=== PATIENT | female | born 2000 | race Asian ===

== ENCOUNTER 2023-10-06 07:55 | Inpatient (IN) ==
[2023-10-06] MEDS ORDERED: LIDOCAINE 1% LOCAL 20 ML VIAL INFIL PRN (08:05)
[2023-10-06] MEDS ORDERED: OXYTOCIN 30 UNITS/NSS 30 UNITS/500 ML BAG IV PRN ×2 (08:05)
[2023-10-06] MEDS ORDERED: PENICILLIN GK 6 MU in DEXTROSE 5% 250 ML IV STA (08:09)
[2023-10-06] MEDS ORDERED: INSULIN REGULAR 250 UNITS in SODIUM CHLORIDE 0.9% 247.5 ML IV PRN (08:30)
[2023-10-06] MEDS ORDERED: DEXTROSE 50% 50 ML SYRINGE IV PRN (08:30)
[2023-10-06] MEDS ORDERED: SODIUM CHLORIDE 0.9% 1,000 ML IV PRN (08:30)
[2023-10-06 08:40] LABS: Hemoglobin 12.5 g/dl (12.0-16.0); Mean Corpuscular Hgb Conc 32.9 g/dL (32.0-36.0); Mean Platelet Volume 10.5 fL (9.4-12.4); Platelet Count 305 K/uL (130-400); RDW Coefficient of Variation 15.2 % (11.5-14.5); White Blood Count 13.09 K/ul (4.8-10.8)
[2023-10-06] MEDS: LACTATED RINGER'S 1,000 ML IV PRN ×3 (08:44→20:47)
--- NOTE | 2023-10-06 09:21 | Labor Progress Brief Note ---
Date of Service October 06, 2023 Subjective Had a lot of discomfort last night on the way home from hospital after having Kay placed; pulled over to side of road during her worst episode of cramps, which then resolved on their own, and they went home. Noticed "a few teaspoons" of bleeding, and the balloon fell out completely about 3 hours after it was placed. This morning she has some residual vaginal discomfort and c/o pain at the IV sites that have just been placed. Feeling FM, no ROM. No active VB but they do mention again the bleeding last night after kay placement. Assessment & Plan (1) Insulin controlled gestational diabetes mellitus (GDM) during , antepartum: Plan 23yo obese female with A2GDM vs undiagnosed T2DM (based on gestational 1-hr GTT result of 284) for IOL. 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 PCN for GBS, and Pitocin for IOL. Epidural on request. Patient was not sure she wanted to get one but after the amount of discomfort she had during exam, kay placement and overnight, she is now more open to using epidural. Ultrasounds reviewed, EFW/AC's have been in smaller ranges. Limited Nigerian speaker, but is fluent and they both prefer that he translates for her, refusing the use of iPad nonprofit fundraiser here as they have previously done in office. As seen in office, patient often responds to spoken Nigerian with appropriate behavioral responses that suggest she chooses to have her speak for her rather than that she completely fails to understand what is being discussed. Cervix this morning is only slightly changed from yesterday suggesting the balloon fell out from the cervix before it had really had full effect. Perhaps her significant pain episode on the way home was extrusion of the balloon through the cervix? Options for cervical ripening were discussed and patient elects to have a Kay replaced, rather than to use cytotec. This was completed without difficulty and with good tolerance by the patient, and placed on tension with a leg sticker. Low dose pitocin to be used concurrently, can go up on pit dose after balloon falls out. Admission and Anticipated Discharge Date Admission Date: October 06, 2023 Physical Exam Genitourinary: 1/50/hi/soft/post 140 mod karin +acc -dec No ROM No significant VB Results & Data Vital Signs (Past 12 Hours) Vital Signs Temp Pulse Resp BP 10/06/23 08:26 88 131/60 10/06/23 08:15 98.2 F 99 H 18 127/60 Coding Level of Care Code None Diagnoses Insulin controlled gestational diabetes mellitus (GDM) during , antepartum O24.414
[2023-10-06] MEDS: DEXTROSE 5% 1,000 ML IV PRN ×2 (10:37→20:46)
[2023-10-06] MEDS: PENICILLIN GK 3 MU in DEXTROSE 5% 100 ML IV PRN ×3 (12:38→20:50)
[2023-10-06] MEDS ORDERED: fentaNYL citrate PF 100 MCG/2 ML VIAL ONE (13:40)
[2023-10-06] MEDS ORDERED: ePHEDrine sulfate 50 MG/ML AMP ONE (13:40)
[2023-10-06] MEDS ORDERED: fentANYL 2 MCG/ML BUPIVacaine 0.125%-NSS 100ML BAG ONE (13:41)
[2023-10-06] MEDS ORDERED: SODIUM CHLORIDE 0.9% PF INJ 10 ML VIAL ONE (13:41)
[2023-10-06] MEDS ORDERED: LIDOCAINE 2%/EPINEPHRINE 1:200,000 20 ML PF ONE ×2 (13:41→23:40)
[2023-10-06] MEDS ORDERED: BUPIVACAINE 0.25% PF 30 ML VIAL ONE (13:41)
[2023-10-06] MEDS ORDERED: ONDANSETRON INJ 2 MG/ML 2 ML VIAL IV PRN (13:43)
[2023-10-06] MEDS ORDERED: LIDOCAINE 2%/EPINEPHRINE 1:200,000 20 ML PF EPI STA (13:43)
[2023-10-06] MEDS ORDERED: BUPIVACAINE 0.25% PF 30 ML VIAL EPI PRN (13:43)
[2023-10-06] MEDS ORDERED: SODIUM CHLORIDE 0.9% PF INJ 10 ML VIAL EPI PRN (13:43)
[2023-10-06] MEDS ORDERED: diphenhydrAMINE 50 MG/ML VIAL IV PRN (13:43)
[2023-10-06] MEDS ORDERED: fentaNYL citrate PF 100 MCG/2 ML VIAL EPI STA (13:43)
[2023-10-06] MEDS ORDERED: fentaNYL citrate PF 100 MCG/2 ML VIAL EPI PRN (13:43)
[2023-10-06] MEDS ORDERED: ROPIVACAINE 0.5% PF 5 MG/ML 20 ML VIAL EPI PRN (13:43)
[2023-10-06] MEDS ORDERED: LIDOCAINE 2% MPF LOCAL 5 ML VIAL EPI PRN (13:43)
[2023-10-06] MEDS ORDERED: BUPIVACAINE 0.25% PF 30 ML VIAL EPI STA (13:43)
[2023-10-06] MEDS ORDERED: fentANYL 2 MCG/ML BUPIVacaine 0.125%-NSS 100ML BAG EPI PRN (13:43)
[2023-10-06] MEDS ORDERED: NALOXONE HCL 0.4 MG/1 ML VIAL/CARP IV PRN (13:43)
[2023-10-06] MEDS ORDERED: NALBUPHINE HCL 5 MG in SYRINGE 0 ML IV PRN (13:43)
[2023-10-06] MEDS ORDERED: SODIUM CHLORIDE 0.9% PF INJ 10 ML VIAL EPI STA (13:43)
[2023-10-06] MEDS ORDERED: ePHEDrine sulfate 50 MG/ML AMP IV PRN (13:43)
[2023-10-06] MEDS ORDERED: NALOXONE HCL 1 MG in SODIUM CHLORIDE 0.9% 1,000 ML IV PRN (13:43)
--- NOTE | 2023-10-06 13:45 | Anesthesiology Consultation ---
Date of Service October 06, 2023 Assessment & Plan (1) Encounter for pre-operative examination: Chart Review Chart Review: Patient NOT seen in Pre Admission Testing and Acceptable Risk for Labor Epidural Consults Requested none History Height/Weight Height: 5 ft Weight: 103.419 kg Allergies Allergy/AdvReac Type Severity Reaction Status Date / Time No Known Allergies Allergy Verified 10/05/23 15:16 Medications Home Medications Medication Instructions Recorded Confirmed Last Taken acetone (urine) test (Ketone Urine #50 ea 05/21/23 10/05/23 Unknown Test strips) blood sugar diagnostic (OneTouch #150 ea 05/21/23 10/05/23 Unknown Verio test strips) blood-glucose meter (OneTouch #1 ea 05/21/23 10/05/23 Unknown Verio Reflect Meter) lancets 33 gauge #150 ea 05/21/23 10/05/23 Unknown pen needle, diabetic 32 gauge x #100 ea 06/04/23 10/05/23 Unknown 5/32" (BD Ultra-Fine Blanca Pen Needle) doxylamine succinate 25 mg tablet 25 mg PO HS 08/11/23 10/06/23 10/05/23 23:50 (Unisom (doxylamine)) insulin glargine 100 unit/mL (3 75 unit subcut QPM 08/11/23 10/06/23 10/05/23 06:00 mL) subcutaneous pen (Lantus Solostar U-100 Insulin) levothyroxine 100 mcg tablet 100 mcg PO DAILY 30 days #30 tabs 08/17/23 10/06/23 10/05/23 14:00 insulin aspart U-100 100 unit/mL See Rx Instructions subcut 08/30/23 10/06/23 10/05/23 23:00 (3 mL) subcutaneous pen (Novolog .COMPLEX #30 mL FlexPen U-100 Insulin aspart) vit no.95-ferrous 1 tab PO DAILY 10/05/23 10/06/23 10/05/23 18:45 fumarate 28 mg-folic acid 800 mcg tablet () Active Medications Generic Name Dose Route Start Last Admin Trade Name Freq PRN Reason Stop Dose Admin Oxytocin 30 units in 500 mls @ 9 mls/hr 10/06/23 08:05 10/06/23 12:40 Pitocin 30 Units/Nss IV 10/08/23 08:04 0.54 units/hr .Q24H PRN 9 mls/hr Labor Induction/Augmentation Titration Protocol 0.54 UNITS/HR Lactated Ringer's 1,000 mls @ 125 mls/hr 10/06/23 08:05 10/06/23 08:44 Lr IV 10/08/23 08:04 125 mls/hr .Q8H PRN Administration L&D Protocol Protocol Penicillin G Potassium 3 mu/ 106 mls @ 100 mls/hr 10/06/23 11:05 10/06/23 12:38 Dextrose IV 10/16/23 11:04 100 mls/hr Q4H PRN Administration GBS(+) Until Delivery Dextrose 1,000 mls @ 100 mls/hr 10/06/23 08:30 10/06/23 12:45 D5w IV 11/05/23 08:29 100 mls/hr .Q10H PRN Infusion BSG 180 or below Protocol Insulin Human Regular 250 250 mls @ 0 mls/hr 10/06/23 08:30 10/06/23 12:45 units/ Sodium Chloride IV 11/05/23 08:29 0.5 units/hr .Q0M PRN 0.5 mls/hr BSG 80mg/dL or ABOVE Titration Protocol Per Protocol Past Medical History Medical History (Updated 10/06/23 @ 13:45 by Lauro Parada MD) Encounter for pre-operative examination Diabetes mellitus Insulin controlled gestational diabetes mellitus (GDM) during , antepartum Hypothyroidism Infertility, female Past Family History Family History Father Myocardial infarction Diabetes Denies family history of Ovarian cancer Prostate cancer Breast cancer Colorectal cancer Uterine cancer Past Surgical History Surgical History No significant past surgical history Social History Smoking Status: Never smoker Do You Dip or Chew Tobacco: No Hx Alcohol Use: No Hx Substance Use: No Physical Exam Vital Signs Last Vital Signs Temp 36.8 C 10/06/23 10:59 Pulse 86 10/06/23 12:49 Resp 20 10/06/23 13:30 BP 115/70 10/06/23 12:49 O2 Del Method Room Air 10/06/23 09:25 Testing Laboratory Results 10/06/23 08:24 Blood Type B Positive 10/06/23 08:24 Blood Type Cancelled 10/06/23 08:24 Antibody Screen Cancelled 10/06/23 08:24 Antibody Screen NEGATIVE 10/06/23 08:24 10/06/23 10/06/23 10/06/23 12:44 11:44 10:29 POC Glucose 89 97 99 10/06/23 09:46 POC Glucose 127 H
--- NOTE | 2023-10-06 15:46 | Labor Progress Brief Note ---
Date of Service October 06, 2023 Subjective Accepted epidural, now comfortable. Only c/o some pain at the placement site, initially, which has now resolved. shares that the process of getting the epidural was hard for her, and RN notes there were several attempts, but the end result seems effective and patient has been able to rest. Assessment & Plan (1) Insulin controlled gestational diabetes mellitus (GDM) during , antepartum: Plan: Continues IOL. Pitocin to increase until MVU goal 200-250. LOF now occurring, clear. PCN continues. Insulin protocol in place, BG 89-99 per RN. Admission and Anticipated Discharge Date Admission Date: October 06, 2023 Physical Exam Genitourinary: 350/-2/post/soft AROM clear fluid IUPC inserted without complication Initial MVU appear to be ~50 per ctx. Pit @ 13 [place] continues to show coupling / dysfunctional pattern Results & Data Vital Signs (Past 12 Hours) Vital Signs Temp Pulse Resp BP Pulse Ox O2 Del Method 10/06/23 15:39 94 H 99 10/06/23 15:38 94 H 116/56 L 10/06/23 15:34 108 H 99 10/06/23 15:33 102 H 114/55 L 10/06/23 15:30 18 10/06/23 15:30 18 10/06/23 15:30 18 10/06/23 15:30 18 10/06/23 15:29 99 H 98 10/06/23 15:27 98 H 105/62 10/06/23 15:24 99 H 99 10/06/23 15:21 100 H 108/56 L 10/06/23 15:19 101 H 98 10/06/23 15:16 100 H 106/57 L 10/06/23 15:14 98 10/06/23 15:14 104 H 10/06/23 15:14 106 H 105/57 L 10/06/23 15:12 99 H 106/58 L 10/06/23 15:10 98 H 104/55 L 10/06/23 15:09 100 H 97 10/06/23 15:08 94 H 100/59 L 10/06/23 15:06 95 H 108/57 L 10/06/23 15:05 18 10/06/23 15:05 98.1 F 18 10/06/23 15:04 98 10/06/23 15:04 100 H 10/06/23 15:04 102 H 101/54 L 10/06/23 15:02 95 H 101/58 L 10/06/23 15:00 103 H 105/58 L 10/06/23 14:59 104 H 96 10/06/23 14:58 99 H 106/56 L 10/06/23 14:56 104 H 105/56 L 10/06/23 14:54 109 H 95/55 L 98 10/06/23 14:52 100 H 115/58 L 10/06/23 14:50 99 H 119/60 10/06/23 14:49 102 H 98 10/06/23 14:48 108 H 89/54 L 10/06/23 14:46 101 H 94/52 L 10/06/23 14:44 96 10/06/23 14:44 96 H 10/06/23 14:44 99 H 91/50 L 10/06/23 14:42 101 H 94/51 L 10/06/23 14:40 105 H 92/53 L 10/06/23 14:39 99 H 95 10/06/23 14:38 100 H 93/52 L 10/06/23 14:37 98 H 97/56 L 10/06/23 14:34 96 10/06/23 14:34 99 H 10/06/23 14:34 96 H 129/91 10/06/23 14:32 104 H 124/70 10/06/23 14:30 108 H 127/63 10/06/23 14:29 106 H 96 10/06/23 14:28 101 H 129/66 10/06/23 14:26 105 H 152/66 H 10/06/23 14:24 95 H 92 10/06/23 14:19 99 H 98 10/06/23 14:18 105 H 147/68 H 10/06/23 14:16 106 H 137/63 10/06/23 14:14 97 10/06/23 14:14 121 H 10/06/23 14:14 134 H 144/87 H 10/06/23 14:12 116 H 138/68 10/06/23 14:10 111 H 170/85 H 10/06/23 14:09 109 H 96 10/06/23 14:08 103 H 155/77 H 10/06/23 14:06 88 133/63 10/06/23 14:04 97 10/06/23 14:04 105 H 10/06/23 14:04 105 H 134/66 10/06/23 14:02 109 H 139/68 10/06/23 14:00 100 H 134/82 10/06/23 13:59 100 H 98 10/06/23 13:58 104 H 133/84 10/06/23 13:56 104 H 132/83 10/06/23 13:54 101 H 94 10/06/23 13:53 99 H 94 10/06/23 13:49 109 H 95 10/06/23 13:30 20 10/06/23 13:30 20 10/06/23 12:49 86 115/70 10/06/23 12:30 18 10/06/23 12:30 18 10/06/23 11:47 93 H 125/82 10/06/23 10:59 16 10/06/23 10:59 98.2 F 16 10/06/23 09:25 98.2 F 18 Room Air 10/06/23 08:26 88 131/60 10/06/23 08:15 98.2 F 99 H 18 127/60 Coding Level of Care Code None Diagnoses Insulin controlled gestational diabetes mellitus (GDM) during , antepartum O24.414
--- NOTE | 2023-10-06 19:24 | Labor Progress Brief Note ---
Date of Service October 06, 2023 Subjective Comfortable with epidural. Per the patient is feeling some pain again in back from time to time. Discussed expectations that epidural will not block all sensation, and given that the patient is resting easily and smiling, suspect that the pressure or discomfort she describes is consistent with normal / expected epidural function. Assessment & Plan Admission and Anticipated Discharge Date Admission Date: October 06, 2023 Physical Exam Genitourinary: 4/100/-1 LOF clear FHT Cat 1 [place] Q3-4 with adequate MVU. Results & Data Vital Signs (Past 12 Hours) Vital Signs Temp Pulse Resp BP Pulse Ox O2 Del Method 10/06/23 19:19 103 H 98 10/06/23 19:18 100 H 134/76 10/06/23 19:14 97 H 97 10/06/23 19:10 18 10/06/23 19:10 99.0 F 18 10/06/23 19:09 105 H 97 10/06/23 19:04 105 H 98 10/06/23 19:03 103 H 128/73 10/06/23 19:00 18 10/06/23 19:00 18 10/06/23 18:59 106 H 96 10/06/23 18:54 104 H 96 10/06/23 18:50 107 H 123/74 10/06/23 18:49 105 H 96 10/06/23 18:44 103 H 96 10/06/23 18:39 97 H 96 10/06/23 18:35 104 H 134/73 10/06/23 18:34 100 H 97 10/06/23 18:30 18 10/06/23 18:30 18 10/06/23 18:29 100 H 96 10/06/23 18:24 104 H 97 10/06/23 18:19 96 H 96 10/06/23 18:18 100 H 121/70 10/06/23 18:14 99 H 96 10/06/23 18:09 97 H 97 10/06/23 18:05 98 H 124/73 10/06/23 18:04 97 H 97 10/06/23 18:00 18 10/06/23 18:00 18 10/06/23 17:59 100 H 97 10/06/23 17:54 101 H 97 10/06/23 17:49 94 H 97 10/06/23 17:48 100 H 131/84 10/06/23 17:44 99 H 97 10/06/23 17:41 99 H 133/80 10/06/23 17:39 95 H 97 10/06/23 17:34 94 H 97 10/06/23 17:30 18 10/06/23 17:30 98.2 F 18 10/06/23 17:29 107 H 98 10/06/23 17:24 97 H 98 10/06/23 17:19 89 97 10/06/23 17:18 90 100/57 L 10/06/23 17:14 84 97 10/06/23 17:09 88 97 10/06/23 17:05 87 108/60 10/06/23 17:04 88 98 10/06/23 17:00 18 10/06/23 17:00 18 10/06/23 16:59 91 H 98 10/06/23 16:54 86 98 10/06/23 16:49 88 97 10/06/23 16:48 93 H 103/55 L 10/06/23 16:44 90 97 10/06/23 16:39 89 98 10/06/23 16:34 92 H 108/65 99 10/06/23 16:30 16 10/06/23 16:30 16 10/06/23 16:29 82 97 10/06/23 16:24 87 97 10/06/23 16:20 95 H 108/62 10/06/23 16:19 91 H 94 10/06/23 16:14 93 H 96 10/06/23 16:09 93 H 97 10/06/23 16:04 98 H 96 10/06/23 16:03 97 H 102/64 10/06/23 16:00 18 10/06/23 16:00 18 10/06/23 15:59 93 H 97 10/06/23 15:58 90 102/60 10/06/23 15:54 95 H 98 10/06/23 15:52 93 H 109/55 L 10/06/23 15:49 97 H 98 10/06/23 15:48 91 H 101/55 L 10/06/23 15:44 94 H 98 10/06/23 15:42 95 H 108/55 L 10/06/23 15:39 94 H 99 10/06/23 15:38 94 H 116/56 L 10/06/23 15:34 108 H 99 10/06/23 15:33 102 H 114/55 L 10/06/23 15:30 18 10/06/23 15:30 18 10/06/23 15:30 18 10/06/23 15:30 18 10/06/23 15:29 99 H 98 10/06/23 15:27 98 H 105/62 10/06/23 15:24 99 H 99 10/06/23 15:21 100 H 108/56 L 10/06/23 15:19 101 H 98 10/06/23 15:16 100 H 106/57 L 10/06/23 15:14 98 10/06/23 15:14 104 H 10/06/23 15:14 106 H 105/57 L 10/06/23 15:12 99 H 106/58 L 10/06/23 15:10 98 H 104/55 L 10/06/23 15:09 100 H 97 10/06/23 15:08 94 H 100/59 L 10/06/23 15:06 95 H 108/57 L 10/06/23 15:05 18 10/06/23 15:05 98.1 F 18 10/06/23 15:04 98 10/06/23 15:04 100 H 10/06/23 15:04 102 H 101/54 L 10/06/23 15:02 95 H 101/58 L 10/06/23 15:00 103 H 105/58 L 10/06/23 14:59 104 H 96 10/06/23 14:58 99 H 106/56 L 10/06/23 14:56 104 H 105/56 L 10/06/23 14:54 109 H 95/55 L 98 10/06/23 14:52 100 H 115/58 L 10/06/23 14:50 99 H 119/60 10/06/23 14:49 102 H 98 10/06/23 14:48 108 H 89/54 L 10/06/23 14:46 101 H 94/52 L 10/06/23 14:44 96 10/06/23 14:44 96 H 10/06/23 14:44 99 H 91/50 L 10/06/23 14:42 101 H 94/51 L 10/06/23 14:40 105 H 92/53 L 10/06/23 14:39 99 H 95 10/06/23 14:38 100 H 93/52 L 10/06/23 14:37 98 H 97/56 L 10/06/23 14:34 96 10/06/23 14:34 99 H 10/06/23 14:34 96 H 129/91 10/06/23 14:32 104 H 124/70 10/06/23 14:30 108 H 127/63 10/06/23 14:29 106 H 96 10/06/23 14:28 101 H 129/66 10/06/23 14:26 105 H 152/66 H 10/06/23 14:24 95 H 92 10/06/23 14:19 99 H 98 10/06/23 14:18 105 H 147/68 H 10/06/23 14:16 106 H 137/63 10/06/23 14:14 97 10/06/23 14:14 121 H 10/06/23 14:14 134 H 144/87 H 10/06/23 14:12 116 H 138/68 10/06/23 14:10 111 H 170/85 H 10/06/23 14:09 109 H 96 10/06/23 14:08 103 H 155/77 H 10/06/23 14:06 88 133/63 10/06/23 14:04 97 10/06/23 14:04 105 H 10/06/23 14:04 105 H 134/66 10/06/23 14:02 109 H 139/68 10/06/23 14:00 100 H 134/82 10/06/23 13:59 100 H 98 10/06/23 13:58 104 H 133/84 10/06/23 13:56 104 H 132/83 10/06/23 13:54 101 H 94 10/06/23 13:53 99 H 94 10/06/23 13:49 109 H 95 10/06/23 13:30 20 10/06/23 13:30 20 10/06/23 12:49 86 115/70 10/06/23 12:30 18 10/06/23 12:30 18 10/06/23 11:47 93 H 125/82 10/06/23 10:59 16 10/06/23 10:59 98.2 F 16 10/06/23 09:25 98.2 F 18 Room Air 10/06/23 08:26 88 131/60 10/06/23 08:15 98.2 F 99 H 18 127/60 Coding Level of Care Code None
[2023-10-06] MEDS ORDERED: PHENYLEPHRINE 100MCG/ML 10ML SYR IV ONE (23:40)
[2023-10-06] MEDS ORDERED: ONDANSETRON INJ 2 MG/ML 2 ML VIAL ONE (23:40)
[2023-10-06] MEDS ORDERED: OXYTOCIN 10 UNITS/ML VIAL ONE (23:40)
[2023-10-06] MEDS ORDERED: MoRPHine SULFATE PF 1 MG/ML 10 ML AMP/VIAL ONE (23:40)
[2023-10-06] MEDS ORDERED: LACTATED RINGER'S 1,000 ML IV SCH (23:45)
--- NOTE | 2023-10-06 23:57 | Labor Progress Brief Note ---
Date of Service October 06, 2023 Subjective Patient feeling more pressure and pain in her pubic area. Assessment & Plan (1) Cephalopelvic disproportion: Plan: Options discussed with patient and FOB. Lengthy conversation involving all my findings at this exam, my concern for CPD, and the options from here. status allows ongoing attempt of IOL. However, signs are suggesting that she may ultimately require a . The baby is not believed to be particularly large by recent ultrasounds, but the patient's pelvic shape is narrow. Pain in the pubic bone, new hematuria, significant molding at only 4cm, and failure to progress in labor are all clues which were discussed. The patient is not eager to continue attempt of labor and elects promptly to move to . Consent reviewed line by line with FOB and patient, who indicated understanding with gestures and responding with appropriate questions which were all answered. Admission and Anticipated Discharge Date Admission Date: October 06, 2023 Physical Exam Genitourinary: Cervix with minimal change. head with significant molding. FHT Cat 1 [place] roughly Q4m with MVU ~250 and pit @ 19. Meconium now noted in fluid Blood now present in kay tubing, only just recently began in [id number] urine. Results & Data Vital Signs (Past 12 Hours) Vital Signs Temp Pulse Resp BP Pulse Ox 10/06/23 23:49 104 H 97 10/06/23 23:48 110 H 136/83 10/06/23 23:44 103 H 98 10/06/23 23:39 104 H 98 10/06/23 23:34 103 H 98 10/06/23 23:33 105 H 137/85 10/06/23 23:29 108 H 98 10/06/23 23:24 103 H 95 10/06/23 23:19 100 H 97 10/06/23 23:18 99 H 135/86 10/06/23 23:14 99 H 94 10/06/23 23:09 97 H 95 10/06/23 23:04 96 10/06/23 23:04 99 H 10/06/23 23:04 96 H 137/83 10/06/23 23:00 18 10/06/23 23:00 98.8 F 18 10/06/23 22:59 101 H 94 10/06/23 22:54 98 H 96 10/06/23 22:49 100 H 96 12/27/23 22:48 100 H 123/81 10/06/23 22:44 98 H 94 10/06/23 22:39 99 H 96 10/06/23 22:34 97 10/06/23 22:34 105 H 10/06/23 22:34 100 H 123/76 10/06/23 22:29 102 H 96 10/06/23 22:24 105 H 94 10/06/23 22:19 101 H 96 10/06/23 22:18 108 H 127/75 10/06/23 22:14 104 H 96 10/06/23 22:09 102 H 96 10/06/23 22:04 99 H 96 10/06/23 22:03 100 H 130/74 10/06/23 21:59 98 H 97 10/06/23 21:54 98 H 97 10/06/23 21:49 101 H 130/77 97 10/06/23 21:44 107 H 96 10/06/23 21:39 114 H 97 10/06/23 21:34 100 H 116/71 98 10/06/23 21:29 97 H 97 10/06/23 21:24 100 H 95 10/06/23 21:19 96 10/06/23 21:19 101 H 10/06/23 21:19 105 H 126/69 10/06/23 21:14 99 H 96 10/06/23 21:09 99 H 95 10/06/23 21:04 102 H 96 10/06/23 21:03 101 H 112/61 10/06/23 20:59 104 H 97 10/06/23 20:54 99 H 96 10/06/23 20:49 97 10/06/23 20:49 103 H 10/06/23 20:49 107 H 120/64 10/06/23 20:45 20 10/06/23 20:45 97.7 F 20 10/06/23 20:44 102 H 97 10/06/23 20:39 107 H 97 10/06/23 20:35 106 H 133/66 10/06/23 20:34 99 H 97 10/06/23 20:29 113 H 97 10/06/23 20:24 98 H 98 10/06/23 20:19 97 10/06/23 20:19 98 H 10/06/23 20:19 96 H 134/73 10/06/23 20:14 92 H 95 10/06/23 20:09 96 H 96 10/06/23 20:04 100 H 96 10/06/23 20:03 101 H 131/74 10/06/23 19:59 97 H 96 10/06/23 19:54 93 H 95 10/06/23 19:49 92 H 131/72 95 10/06/23 19:44 92 H 95 10/06/23 19:39 94 H 94 10/06/23 19:35 94 H 139/75 10/06/23 19:34 92 H 95 10/06/23 19:29 92 H 94 10/06/23 19:24 90 95 10/06/23 19:19 103 H 98 10/06/23 19:18 100 H 134/76 10/06/23 19:14 97 H 97 10/06/23 19:10 18 10/06/23 19:10 99.0 F 18 10/06/23 19:09 105 H 97 10/06/23 19:04 105 H 98 10/06/23 19:03 103 H 128/73 10/06/23 19:00 18 10/06/23 19:00 18 10/06/23 18:59 106 H 96 10/06/23 18:54 104 H 96 10/06/23 18:50 107 H 123/74 10/06/23 18:49 105 H 96 10/06/23 18:44 103 H 96 10/06/23 18:39 97 H 96 10/06/23 18:35 104 H 134/73 10/06/23 18:34 100 H 97 10/06/23 18:30 18 10/06/23 18:30 18 10/06/23 18:29 100 H 96 10/06/23 18:24 104 H 97 10/06/23 18:19 96 H 96 10/06/23 18:18 100 H 121/70 10/06/23 18:14 99 H 96 10/06/23 18:09 97 H 97 10/06/23 18:05 98 H 124/73 10/06/23 18:04 97 H 97 10/06/23 18:00 18 10/06/23 18:00 18 10/06/23 17:59 100 H 97 10/06/23 17:54 101 H 97 10/06/23 17:49 94 H 97 10/06/23 17:48 100 H 131/84 10/06/23 17:44 99 H 97 10/06/23 17:41 99 H 133/80 10/06/23 17:39 95 H 97 10/06/23 17:34 94 H 97 10/06/23 17:30 18 10/06/23 17:30 98.2 F 18 10/06/23 17:29 107 H 98 10/06/23 17:24 97 H 98 10/06/23 17:19 89 97 10/06/23 17:18 90 100/57 L 10/06/23 17:14 84 97 10/06/23 17:09 88 97 10/06/23 17:05 87 108/60 10/06/23 17:04 88 98 10/06/23 17:00 18 10/06/23 17:00 18 10/06/23 16:59 91 H 98 10/06/23 16:54 86 98 10/06/23 16:49 88 97 10/06/23 16:48 93 H 103/55 L 10/06/23 16:44 90 97 10/06/23 16:39 89 98 10/06/23 16:34 92 H 108/65 99 10/06/23 16:30 16 10/06/23 16:30 16 10/06/23 16:29 82 97 10/06/23 16:24 87 97 10/06/23 16:20 95 H 108/62 10/06/23 16:19 91 H 94 10/06/23 16:14 93 H 96 10/06/23 16:09 93 H 97 10/06/23 16:04 98 H 96 10/06/23 16:03 97 H 102/64 10/06/23 16:00 18 10/06/23 16:00 18 10/06/23 15:59 93 H 97 10/06/23 15:58 90 102/60 10/06/23 15:54 95 H 98 10/06/23 15:52 93 H 109/55 L 10/06/23 15:49 97 H 98 10/06/23 15:48 91 H 101/55 L 10/06/23 15:44 94 H 98 10/06/23 15:42 95 H 108/55 L 10/06/23 15:39 94 H 99 10/06/23 15:38 94 H 116/56 L 10/06/23 15:34 108 H 99 10/06/23 15:33 102 H 114/55 L 10/06/23 15:30 18 10/06/23 15:30 18 10/06/23 15:30 18 10/06/23 15:30 18 10/06/23 15:29 99 H 98 10/06/23 15:27 98 H 105/62 10/06/23 15:24 99 H 99 10/06/23 15:21 100 H 108/56 L 10/06/23 15:19 101 H 98 10/06/23 15:16 100 H 106/57 L 10/06/23 15:14 98 10/06/23 15:14 104 H 10/06/23 15:14 106 H 105/57 L 10/06/23 15:12 99 H 106/58 L 10/06/23 15:10 98 H 104/55 L 10/06/23 15:09 100 H 97 10/06/23 15:08 94 H 100/59 L 10/06/23 15:06 95 H 108/57 L 10/06/23 15:05 18 10/06/23 15:05 98.1 F 18 10/06/23 15:04 98 10/06/23 15:04 100 H 10/06/23 15:04 102 H 101/54 L 10/06/23 15:02 95 H 101/58 L 10/06/23 15:00 103 H 105/58 L 10/06/23 14:59 104 H 96 10/06/23 14:58 99 H 106/56 L 10/06/23 14:56 104 H 105/56 L 10/06/23 14:54 109 H 95/55 L 98 10/06/23 14:52 100 H 115/58 L 10/06/23 14:50 99 H 119/60 10/06/23 14:49 102 H 98 10/06/23 14:48 108 H 89/54 L 10/06/23 14:46 101 H 94/52 L 10/06/23 14:44 96 10/06/23 14:44 96 H 10/06/23 14:44 99 H 91/50 L 10/06/23 14:42 101 H 94/51 L 10/06/23 14:40 105 H 92/53 L 10/06/23 14:39 99 H 95 10/06/23 14:38 100 H 93/52 L 10/06/23 14:37 98 H 97/56 L 10/06/23 14:34 96 10/06/23 14:34 99 H 10/06/23 14:34 96 H 129/91 10/06/23 14:32 104 H 124/70 10/06/23 14:30 108 H 127/63 10/06/23 14:29 106 H 96 10/06/23 14:28 101 H 129/66 10/06/23 14:26 105 H 152/66 H 10/06/23 14:24 95 H 92 10/06/23 14:19 99 H 98 10/06/23 14:18 105 H 147/68 H 10/06/23 14:16 106 H 137/63 10/06/23 14:14 97 10/06/23 14:14 121 H 10/06/23 14:14 134 H 144/87 H 10/06/23 14:12 116 H 138/68 10/06/23 14:10 111 H 170/85 H 10/06/23 14:09 109 H 96 10/06/23 14:08 103 H 155/77 H 10/06/23 14:06 88 133/63 10/06/23 14:04 97 10/06/23 14:04 105 H 10/06/23 14:04 105 H 134/66 10/06/23 14:02 109 H 139/68 10/06/23 14:00 100 H 134/82 10/06/23 13:59 100 H 98 10/06/23 13:58 104 H 133/84 10/06/23 13:56 104 H 132/83 10/06/23 13:54 101 H 94 10/06/23 13:53 99 H 94 10/06/23 13:49 109 H 95 10/06/23 13:30 20 10/06/23 13:30 20 10/06/23 12:49 86 115/70 10/06/23 12:30 18 10/06/23 12:30 18 Coding Level of Care Code None Diagnoses Cephalopelvic disproportion O33.9
[2023-10-07] MEDS ORDERED: PROMETHAZINE HCL 6.25 MG in SODIUM CHLORIDE 0.9% 50 ML IV PRN
[2023-10-07] MEDS ORDERED: NO NARCOTICS OR SEDATIVES SCH
[2023-10-07] MEDS ORDERED: NALOXONE HCL 0.08 MG in SYRINGE 1.8 ML IV PRN
[2023-10-07] MEDS ORDERED: MoRPHine SULFATE PF 1 MG/ML 10 ML AMP/VIAL EPI ONE
[2023-10-07] MEDS ORDERED: ePHEDrine sulfate 50 MG/ML AMP IV PRN
[2023-10-07] MEDS ORDERED: DC INTRASPINAL MORPHINE SCH
[2023-10-07] MEDS ORDERED: NALOXONE HCL 0.4 MG/1 ML VIAL/CARP IV PRN
[2023-10-07] MEDS ORDERED: NALBUPHINE HCL 5 MG in SYRINGE 0 ML IV PRN
[2023-10-07] MEDS ORDERED: NALOXONE HCL 1 MG in SODIUM CHLORIDE 0.9% 1,000 ML IV PRN
[2023-10-07] MEDS ORDERED: SODIUM CHLORIDE 0.9% 1,000 ML IV SCH
[2023-10-07] MEDS ORDERED: LACTATED RINGER'S 500 ML IV PRN
[2023-10-07] MEDS ORDERED: HYDROmorphone INJ 0.5 MG/0.5 ML SYR IV PRN
[2023-10-07] MEDS ORDERED: CITRIC ACID/SODIUM CITRATE 15 ML UDC PO SCH (00:15)
--- NOTE | 2023-10-07 01:12 | Operative Report ---
PG Post Operative Report Pre & Post Diagnosis Operation Date: 10/07/23 00:20 [facility] @ Term A2GDM Failure to progress in labor I identified the patient and participated in the time-out.: Yes Procedure Operation Date: 10/07/23 00:20 1'Low Transverse Section Surgeon Yeny Joyce MD Industrial Electrical Engineer Coral Rios RN Estimated Blood Loss 500 Findings Consistent with Post-Op Diagnosis Specimens Placenta, Cord blood Drains Kay Anesthesia Type Spinal Complications none Disposition Accompanied Patient To Recovery: Yes Disposition: L&D Description of Procedure The patient was placed operating table in the supine position with a leftward tilt. She was prepped and draped in standard sterile fashion. The anesthetic was tested and found to be adequate. A time-out was held, identifying correct patient, procedure, positioning and preoperative antibiotics. There were no concerns. A Pfannenstiel skin incision was made with a knife and taken down to the underlying layer of fascia. The fascia was incised in the midline with the knife and taken out laterally with scissors. The superior edge of the fascial incision was grasped, elevated and dissected off the underlying rectus both superiorly and inferiorly. The muscles were bluntly in the midline. The peritoneum was entered bluntly. The incision was then stretched. The Abel retractor was placed. The vesicouterine peritoneum was identified, entered with scissors and taken out laterally with scissors. The bladder flap was created digitally. A hysterotomy incision was created transversely in the lower uterine segment, final entry being accomplished in a blunt manner with the bench machine operator's fingers. Clear amniotic fluid was encountered. The bench machine operator's hand was used to elevate the head to the hysterotomy. The head was delivered using mild fundal pressure, and the shoulders and body followed without difficulty. The cord was clamped and cut and the infant was then handed off to the awaiting brake repairer bus. Cord blood was obtained. The placenta was Manually extracted. The uterus was cleared of all clot and debris with moistened laparotomy sponges. The hysterotomy incision was repaired in two layers, the first in a running locked layer, the second in an imbricating layer. The ovaries and tubes were seen to be normal bilaterally. The gutters were cleared of clot and debris. A final inspection of the hysterotomy revealed good hemostasis. The Abel retractor was removed. The rectus muscles were allowed to reapproximate naturally. The fascia was then reapproximated with 1 Vicryl in a running nonlocked manner. The fascia was examined and found to be free of defect following closure. The subcutaneous tissue was copiously irrigated and reapproximated with 0-chromic, then the skin edges were closed with 4-0 monocryl in a subcuticular fashion. A dermabond dressing was applied. The kay was found to be draining clear yellow urine at completion of the procedure. I attest to the content of the Intraoperative Record and any orders documented therein. Any exceptions are noted below. I attest to the content of the Intraoperative Record and any orders documented therein. Any exceptions are noted below.
--- NOTE | 2023-10-07 01:25 | Anesthesiology Progress Note ---
Date of Service October 07, 2023 Anesthesia Post Procedure Vital Signs Vital Signs: Temp Pulse Resp BP Pulse Ox O2 Del Method 10/07/23 01:24 102 H 100 10/07/23 01:20 106 H 117/70 10/07/23 01:19 105 H 100 10/07/23 00:20 103 H 118/92 10/07/23 00:19 101 H 98 10/07/23 00:14 103 H 96 10/07/23 00:09 106 H 95 10/07/23 00:04 96 10/07/23 00:04 106 H 10/07/23 00:04 109 H 127/75 10/06/23 23:59 107 H 96 10/06/23 23:54 109 H 97 10/06/23 23:49 104 H 97 10/06/23 23:48 110 H 136/83 10/06/23 23:44 103 H 98 10/06/23 23:39 104 H 98 10/06/23 23:34 103 H 98 10/06/23 23:33 105 H 137/85 10/06/23 23:29 108 H 98 10/06/23 23:24 103 H 95 10/06/23 23:19 100 H 97 10/06/23 23:18 99 H 135/86 10/06/23 23:14 99 H 94 10/06/23 23:09 97 H 95 10/06/23 23:04 96 10/06/23 23:04 99 H 10/06/23 23:04 96 H 137/83 10/06/23 23:00 18 10/06/23 23:00 37.1 C 18 10/06/23 22:59 101 H 94 10/06/23 22:54 98 H 96 10/06/23 22:49 100 H 96 10/06/23 22:48 100 H 123/81 10/06/23 22:44 98 H 94 10/06/23 22:39 99 H 96 10/06/23 22:34 97 10/06/23 22:34 105 H 10/06/23 22:34 100 H 123/76 10/06/23 22:29 102 H 96 10/06/23 22:24 105 H 94 10/06/23 22:19 101 H 96 10/06/23 22:18 108 H 127/75 10/06/23 22:14 104 H 96 10/06/23 22:09 102 H 96 10/06/23 22:04 99 H 96 10/06/23 22:03 100 H 130/74 10/06/23 21:59 98 H 97 10/06/23 21:54 98 H 97 10/06/23 21:49 101 H 130/77 97 10/06/23 21:44 107 H 96 10/06/23 21:39 114 H 97 10/06/23 21:34 100 H 116/71 98 10/06/23 21:29 97 H 97 10/06/23 21:24 100 H 95 10/06/23 21:19 96 10/06/23 21:19 101 H 10/06/23 21:19 105 H 126/69 10/06/23 21:14 99 H 96 10/06/23 21:09 99 H 95 10/06/23 21:04 102 H 96 10/06/23 21:03 101 H 112/61 10/06/23 20:59 104 H 97 10/06/23 20:54 99 H 96 10/06/23 20:49 97 10/06/23 20:49 103 H 10/06/23 20:49 107 H 120/64 10/06/23 20:45 20 10/06/23 20:45 36.5 C 20 10/06/23 20:44 102 H 97 10/06/23 20:39 107 H 97 10/06/23 20:35 106 H 133/66 10/06/23 20:34 99 H 97 10/06/23 20:29 113 H 97 10/06/23 20:24 98 H 98 10/06/23 20:19 97 10/06/23 20:19 98 H 10/06/23 20:19 96 H 134/73 10/06/23 20:14 92 H 95 10/06/23 20:09 96 H 96 10/06/23 20:04 100 H 96 10/06/23 20:03 101 H 131/74 10/06/23 19:59 97 H 96 10/06/23 19:54 93 H 95 10/06/23 19:49 92 H 131/72 95 10/06/23 19:44 92 H 95 10/06/23 19:39 94 H 94 10/06/23 19:35 94 H 139/75 10/06/23 19:34 92 H 95 10/06/23 19:29 92 H 94 10/06/23 19:24 90 95 10/06/23 19:19 103 H 98 10/06/23 19:18 100 H 134/76 10/06/23 19:14 97 H 97 10/06/23 19:10 18 10/06/23 19:10 37.2 C 18 10/06/23 19:09 105 H 97 10/06/23 19:04 105 H 98 10/06/23 19:03 103 H 128/73 10/06/23 19:00 18 10/06/23 19:00 18 10/06/23 18:59 106 H 96 10/06/23 18:54 104 H 96 10/06/23 18:50 107 H 123/74 10/06/23 18:49 105 H 96 10/06/23 18:44 103 H 96 10/06/23 18:39 97 H 96 10/06/23 18:35 104 H 134/73 10/06/23 18:34 100 H 97 10/06/23 18:30 18 10/06/23 18:30 18 10/06/23 18:29 100 H 96 10/06/23 18:24 104 H 97 10/06/23 18:19 96 H 96 10/06/23 18:18 100 H 121/70 10/06/23 18:14 99 H 96 10/06/23 18:09 97 H 97 10/06/23 18:05 98 H 124/73 10/06/23 18:04 97 H 97 10/06/23 18:00 18 10/06/23 18:00 18 10/06/23 17:59 100 H 97 10/06/23 17:54 101 H 97 10/06/23 17:49 94 H 97 10/06/23 17:48 100 H 131/84 10/06/23 17:44 99 H 97 10/06/23 17:41 99 H 133/80 10/06/23 17:39 95 H 97 10/06/23 17:34 94 H 97 10/06/23 17:30 18 10/06/23 17:30 36.8 C 18 10/06/23 17:29 107 H 98 10/06/23 17:24 97 H 98 10/06/23 17:19 89 97 10/06/23 17:18 90 100/57 L 10/06/23 17:14 84 97 10/06/23 17:09 88 97 10/06/23 17:05 87 108/60 10/06/23 17:04 88 98 10/06/23 17:00 18 10/06/23 17:00 18 10/06/23 16:59 91 H 98 10/06/23 16:54 86 98 10/06/23 16:49 88 97 10/06/23 16:48 93 H 103/55 L 10/06/23 16:44 90 97 10/06/23 16:39 89 98 10/06/23 16:34 92 H 108/65 99 10/06/23 16:30 16 10/06/23 16:30 16 10/06/23 16:29 82 97 10/06/23 16:24 87 97 10/06/23 16:20 95 H 108/62 10/06/23 16:19 91 H 94 10/06/23 16:14 93 H 96 10/06/23 16:09 93 H 97 10/06/23 16:04 98 H 96 10/06/23 16:03 97 H 102/64 10/06/23 16:00 18 10/06/23 16:00 18 10/06/23 15:59 93 H 97 10/06/23 15:58 90 102/60 10/06/23 15:54 95 H 98 10/06/23 15:52 93 H 109/55 L 10/06/23 15:49 97 H 98 10/06/23 15:48 91 H 101/55 L 10/06/23 15:44 94 H 98 10/06/23 15:42 95 H 108/55 L 10/06/23 15:39 94 H 99 10/06/23 15:38 94 H 116/56 L 10/06/23 15:34 108 H 99 10/06/23 15:33 102 H 114/55 L 10/06/23 15:30 18 10/06/23 15:30 18 10/06/23 15:30 18 10/06/23 15:30 18 10/06/23 15:29 99 H 98 10/06/23 15:27 98 H 105/62 10/06/23 15:24 99 H 99 10/06/23 15:21 100 H 108/56 L 10/06/23 15:19 101 H 98 10/06/23 15:16 100 H 106/57 L 10/06/23 15:14 98 10/06/23 15:14 104 H 10/06/23 15:14 106 H 105/57 L 10/06/23 15:12 99 H 106/58 L 10/06/23 15:10 98 H 104/55 L 10/06/23 15:09 100 H 97 10/06/23 15:08 94 H 100/59 L 10/06/23 15:06 95 H 108/57 L 10/06/23 15:05 18 10/06/23 15:05 36.7 C 18 10/06/23 15:04 98 10/06/23 15:04 100 H 10/06/23 15:04 102 H 101/54 L 10/06/23 15:02 95 H 101/58 L 10/06/23 15:00 103 H 105/58 L 10/06/23 14:59 104 H 96 10/06/23 14:58 99 H 106/56 L 10/06/23 14:56 104 H 105/56 L 10/06/23 14:54 109 H 95/55 L 98 10/06/23 14:52 100 H 115/58 L 10/06/23 14:50 99 H 119/60 10/06/23 14:49 102 H 98 10/06/23 14:48 108 H 89/54 L 10/06/23 14:46 101 H 94/52 L 10/06/23 14:44 96 10/06/23 14:44 96 H 10/06/23 14:44 99 H 91/50 L 10/06/23 14:42 101 H 94/51 L 10/06/23 14:40 105 H 92/53 L 10/06/23 14:39 99 H 95 10/06/23 14:38 100 H 93/52 L 10/06/23 14:37 98 H 97/56 L 10/06/23 14:34 96 10/06/23 14:34 99 H 10/06/23 14:34 96 H 129/91 10/06/23 14:32 104 H 124/70 10/06/23 14:30 108 H 127/63 10/06/23 14:29 106 H 96 10/06/23 14:28 101 H 129/66 10/06/23 14:26 105 H 152/66 H 10/06/23 14:24 95 H 92 10/06/23 14:19 99 H 98 10/06/23 14:18 105 H 147/68 H 10/06/23 14:16 106 H 137/63 10/06/23 14:14 97 10/06/23 14:14 121 H 10/06/23 14:14 134 H 144/87 H 10/06/23 14:12 116 H 138/68 10/06/23 14:10 111 H 170/85 H 10/06/23 14:09 109 H 96 10/06/23 14:08 103 H 155/77 H 10/06/23 14:06 88 133/63 10/06/23 14:04 97 10/06/23 14:04 105 H 10/06/23 14:04 105 H 134/66 10/06/23 14:02 109 H 139/68 10/06/23 14:00 100 H 134/82 10/06/23 13:59 100 H 98 10/06/23 13:58 104 H 133/84 10/06/23 13:56 104 H 132/83 10/06/23 13:54 101 H 94 10/06/23 13:53 99 H 94 10/06/23 13:49 109 H 95 10/06/23 13:30 20 10/06/23 13:30 20 10/06/23 12:49 86 115/70 10/06/23 12:30 18 10/06/23 12:30 18 10/06/23 11:47 93 H 125/82 10/06/23 10:59 16 10/06/23 10:59 36.8 C 16 10/06/23 09:25 36.8 C 18 Room Air 10/06/23 08:26 88 131/60 10/06/23 08:15 36.8 C 99 H 18 127/60 Pain Intensity Abdomen: Pain Intensity: 0 Transfer of Care Handoff Completed per policy Notes Mental Status: alert / awake / arousable and participated in evaluation Patient Amnestic to Procedure: No Nausea / Vomiting: adequately controlled Pain: adequately controlled Airway Patency, RR, SpO2: stable & adequate BP & HR: stable & adequate Hydration State: stable & adequate Neuraxial Anesthesia: was administered and sensory block is resolving Anesthetic Complications: no major complications apparent and Pt Satisfied with anesthetic care
--- NOTE | 2023-10-07 01:26 | Anesthesia Procedure Note ---
Date of Service October 07, 2023 Anesthesia Post Epidural Note Vital Signs Vital Signs: Temp Pulse Resp BP Pulse Ox O2 Del Method 37.1 C 102 H 18 117/70 100 Room Air 10/06/23 23:00 10/07/23 01:24 10/06/23 23:00 10/07/23 01:20 10/07/23 01:24 10/06/23 09:25 Pain Intensity Abdomen: Pain Intensity: 0 Notes Mental Status: alert / awake / arousable and participated in evaluation Patient Amnestic to Procedure: No Nausea / Vomiting: adequately controlled Pain: adequately controlled Airway Patency, RR, SpO2: stable & adequate BP & HR: stable & adequate Hydration State: stable & adequate Neuraxial Anesthesia: was administered and sensory block is resolving Anesthetic Complications: no major complications apparent and Pt Satisfied with anesthetic care Epidural: Removed without complications and With tip intact
[2023-10-07] MEDS ORDERED: DIPHTHERIA/TETANUS/PERTUSSIS Vaccine (Tdap, Age 7+yrs) 0.5mL SYR/VL IM ONE (01:38)
[2023-10-07] MEDS ORDERED: OXYTOCIN 30 UNITS/LR 1,003 ML IV SCH (01:38)
[2023-10-07] MEDS ORDERED: BENZOCAINE 20% SPRY 85 APPLN/85 GM CAN EXT PRN (01:38)
[2023-10-07] MEDS ORDERED: HYDROCORTISONE ACETATE 25 MG SUPP PR PRN (01:38)
[2023-10-07] MEDS ORDERED: SENNA 8.6 MG TAB PO PRN (01:38)
[2023-10-07] MEDS ORDERED: MAGNESIUM HYDROXIDE SUSP 30 ML UDC PO PRN (01:38)
[2023-10-07] MEDS: KETOROLAC 30 MG/ML VIAL IV PRN ×2 (01:39→14:33)
[2023-10-07] MEDS: LEVOTHYROXINE SODIUM 100 MCG TABLET PO SCH (06:44)
[2023-10-07] MEDS: ONDANSETRON INJ 2 MG/ML 2 ML VIAL IV PRN ×2 (07:11→10:06)
[2023-10-07] MEDS: DOCUSATE SODIUM 100 MG CAP PO SCH ×2 (08:26→20:27)
[2023-10-07] MEDS: FERROUS SULFATE 325 MG TAB PO SCH (08:26)
[2023-10-07] MEDS: SIMETHICONE 80 MG CHEW PO SCH ×4 (08:26→20:25)
[2023-10-07] MEDS: PRENATAL VITAMIN 1 TAB PO SCH (08:26)
[2023-10-07] MEDS: LACTATED RINGER'S 1,000 ML IV SCH (12:54)
[2023-10-07] MEDS ORDERED: ONDANSETRON INJ 2 MG/ML 2 ML VIAL IV PRN (18:01)
[2023-10-07] MEDS ORDERED: diphenhydrAMINE Capsule 25 MG CAP PO PRN (18:01)
[2023-10-07] MEDS ORDERED: diphenhydrAMINE 50 MG/ML VIAL IV PRN ×2 (18:01)
[2023-10-07] MEDS ORDERED: MEPERIDINE HCL 50 MG/ML CARP IV PRN (18:01)
[2023-10-07] MEDS ORDERED: PROMETHAZINE HCL 25 MG in SODIUM CHLORIDE 0.9% 50 ML IV PRN (18:01)
[2023-10-07] MEDS ORDERED: KETOROLAC 30 MG/ML VIAL IV PRN (18:01)
[2023-10-07] MEDS: oxyCODONE/ACETAMINOPHEN 5mg/325mg TAB PO PRN (20:25)
[2023-10-07] MEDS: IBUPROFEN 600 MG TAB PO PRN (20:25)
[2023-10-08] MEDS: IBUPROFEN 600 MG TAB PO PRN ×5 (01:33→22:48)
[2023-10-08 07:13] LABS: Basophils # (auto) 0.03 K/uL (0.00-0.20); Basophils % (auto) 0.3 %; Eosinophils # (auto) 0.09 K/uL (0.00-0.50); Eosinophils % (auto) 0.8 %; Hematocrit (blood only) 34.1 % (37.0-47.0); Hemoglobin 10.6 g/dl (12.0-16.0); Immature Granulocytes # (auto) 0.11 K/uL (0.01-0.20); Immature Granulocytes % (auto) 0.9 %; Lymphocytes # (auto) 2.01 K/uL (1.20-3.40); Lymphocytes % (auto) 17.1 %; Mean Corpuscular Hemoglobin 24.5 pg (25.0-34.0); Mean Corpuscular Hgb Conc 31.1 g/dL (32.0-36.0); Mean Corpuscular Volume 78.8 fL (80.0-100.0); Mean Platelet Volume 10.6 fL (9.4-12.4); Monocytes # (auto) 0.48 K/uL (0.11-0.59); Monocytes % (auto) 4.1 %; Neutrophils # (auto) 9.01 K/uL (1.40-6.50); Neutrophils % (auto) 76.8 %; Platelet Count 265 K/uL (130-400); RDW Coefficient of Variation 15.2 % (11.5-14.5); RDW Standard Deviation 43.5 fL (36.4-46.3); Red Blood Count 4.33 M/uL (4.20-5.40); White Blood Count 11.73 K/ul (4.8-10.8)
--- NOTE | 2023-10-08 07:52 | Obstetrical Progress Note ---
Date of Service October 08, 2023 Assessment & Plan (1) Encounter for care and examination after delivery: satisfactory / post-op course they have been in touch with Nneka at endocrinology and they will continue to check blood sugars fasting and then one postprandial continue current care plan Subjective Ambulation: ambulating normally Voiding: no voiding problems Passing Gas:: Yes Diet Tolerance:: regular diet Lochia:: Small Feeding Type:: breast feeding Review of Systems All systems reviewed & are unremarkable except as noted in HPI & below Physical Exam Constitutional WD/WN, vitals as above Gastrointestinal (Abdomen) Inspection/Auscultation: + abdominal surgical incision (intact and dry. no induration noted) Psychiatric A+Ox3, euthymic affect Genitourinary OB Exam Abdomen: + fundal height Fundus: + firm and + relation to umbilicus (1 below U) Results & Data Vital Signs (Past 12 Hours) Vital Signs Temp Pulse Resp BP Pulse Ox O2 Del Method 10/07/23 23:32 98.6 F 102 H 20 121/76 96 Room Air
[2023-10-08] MEDS: SIMETHICONE 80 MG CHEW PO SCH ×4 (08:00→19:59)
[2023-10-08] MEDS: PRENATAL VITAMIN 1 TAB PO SCH (08:00)
[2023-10-08] MEDS: DOCUSATE SODIUM 100 MG CAP PO SCH ×2 (08:01→23:59)
[2023-10-08] MEDS: FERROUS SULFATE 325 MG TAB PO SCH (08:01)
[2023-10-08] MEDS: LEVOTHYROXINE SODIUM 100 MCG TABLET PO SCH (08:33)
[2023-10-08] MEDS: oxyCODONE/ACETAMINOPHEN 5mg/325mg TAB PO PRN ×2 (11:03→19:59)
[2023-10-08] MEDS ORDERED: bisacodyL 5 MG TABEC PO SCH (20:00)
[2023-10-08] MEDS: LACTATED RINGER'S 1,000 ML IV SCH (23:57)
[2023-10-09] MEDS ORDERED: bisacodyL 10 MG SUPP PR PRN
[2023-10-09] MEDS: IBUPROFEN 600 MG TAB PO PRN ×3 (04:22→19:46)
[2023-10-09] MEDS: LEVOTHYROXINE SODIUM 100 MCG TABLET PO SCH (06:54)
[2023-10-09 07:42] LABS: Hematocrit (blood only) 34.3 % (37.0-47.0); Hemoglobin 10.7 g/dl (12.0-16.0)
--- NOTE | 2023-10-09 09:08 | Obstetrical Progress Note ---
Date of Service October 09, 2023 Assessment & Plan (1) Encounter for care and examination after delivery: Day 2 status post primary . Patient doing well. Routine care Subjective Ambulation: ambulating normally Voiding: no voiding problems Passing Gas:: Yes Diet Tolerance:: regular diet Lochia:: Moderate Feeding Type:: breast feeding No calf tenderness Physical Exam Constitutional WD/WN, vitals as above Respiratory normal respiratory effort; no respiratory distress and no labored breathing Gastrointestinal (Abdomen) Inspection/Auscultation: abdomen normal to inspection; abdomen not distended Percussion/Palpation: abdomen soft; abdomen nontender, no guarding and abdomen not rigid Genitourinary OB Exam Abdomen: + fundal height Fundus: + firm and + relation to umbilicus (Below); not tender or not boggy Results & Data Vital Signs (Past 12 Hours) Vital Signs Temp Pulse Resp BP Pulse Ox O2 Del Method 10/09/23 07:30 36.5 C 90 18 116/78 96 Room Air 10/08/23 22:52 36.9 C 89 20 122/83 98 Room Air
[2023-10-09] MEDS: SIMETHICONE 80 MG CHEW PO SCH ×4 (09:09→19:46)
[2023-10-09] MEDS: PRENATAL VITAMIN 1 TAB PO SCH (09:09)
[2023-10-09] MEDS: FERROUS SULFATE 325 MG TAB PO SCH (09:09)
[2023-10-09] MEDS: DOCUSATE SODIUM 100 MG CAP PO SCH ×2 (09:10→19:46)
[2023-10-09] MEDS: oxyCODONE/ACETAMINOPHEN 5mg/325mg TAB PO PRN (19:47)
[2023-10-10] MEDS: LEVOTHYROXINE SODIUM 100 MCG TABLET PO SCH (06:36)
--- NOTE | 2023-10-10 07:13 | Obstetrical Progress Note ---
Date of Service October 10, 2023 Assessment & Plan (1) Encounter for care and examination after delivery: 23 yo POD 3 from [facility], doing well -Meeting all pp milestones -B+/rubella immune/ -f/u 6 weeks for appt, dc home Subjective Ambulation: ambulating normally Voiding: no voiding problems Passing Gas:: Yes Diet Tolerance:: regular diet Lochia:: Small Feeding Type:: breast feeding Pain well managed with medication Review of Systems Denies fevers, chills, n/v, DSOUZA, CP, SOB Physical Exam Constitutional WD/WN, vitals as above no acute distress Respiratory normal respiratory effort, lungs clear to auscultation Cardiovascular RRR, no murmur, no edema Gastrointestinal (Abdomen) Percussion/Palpation: abdomen soft; abdomen nontender fundus firm at umbilicus and NT incision c/d/i Musculoskeletal BLE symmetric, nonerythematous, nontender Results & Data Vital Signs (Past 12 Hours) Vital Signs Temp Pulse Resp BP BP Pulse Ox O2 Del Method 10/09/23 23:20 98.2 F 99 H 18 127/84 98 Room Air 10/09/23 19:52 98.1 F 114 H 18 115/80
[2023-10-10] MEDS: SIMETHICONE 80 MG CHEW PO SCH ×2 (09:36→14:08)
[2023-10-10] MEDS: FERROUS SULFATE 325 MG TAB PO SCH (09:36)
[2023-10-10] MEDS: PRENATAL VITAMIN 1 TAB PO SCH (09:36)
[2023-10-10] MEDS: oxyCODONE/ACETAMINOPHEN 5mg/325mg TAB PO PRN (09:37)
[2023-10-10] MEDS: IBUPROFEN 600 MG TAB PO PRN ×2 (09:37→14:08)
[2023-10-10] MEDS: DOCUSATE SODIUM 100 MG CAP PO SCH (09:37)
--- NOTE | 2023-10-10 13:51 | Communication Note ---
Date of Service: October 10, 2023 Called by RN as patient is still experiencing pain at her epidural injection site. Through interpretation by her , patient says that pain has in creased in the few days since her C section. She is not having any bowel or bladder dysfunction, numbness or weakness in her lower extremities. Pain is bothersome but not severe. Epidural site is tender to palpation on exam. Given the lack of any lower neurologic symptoms or severe pain, I do not have suspicion for epidural hematoma. I explained that bruising around the spinal column may cause pain for a few days to a week. She is likely experiencing an increase in pain because her epidural morphine given with C section has now worn off. NSAIDs, low dose oral opioids, and/or heat packs may be used for the pain. If pain is not improved by her first OB follow up visit, I encouraged her to have her OB physician reach out to our department and we would be happy to see her in clinic.
--- NOTE | 2023-10-13 07:40 | Discharge Summary ---
Date of Service October 13, 2023 Discharge Data Consultations 10/06/23 08:05 Consult Anesthesiology Stat Procedures Performed Operation Date: 10/07/23 00:20 Actual Procedures p Section in LD for live female child at 0046. - Yeny Joyce MD Coding Level of Care Code None
== END 2023-10-10 15:30 | disposition home or self-care (01) | DRG 788 ==
LOC: 4S1 07:55 → 4E2 10-07 04:06